=== PATIENT | male | born 1970 ===

== ENCOUNTER 2018-05-27 11:45 | Emergency (ER) | payer BC ==
[2018-05-27 12:03] VITALS: RESP 18; O2SAT 99
--- NOTE | 2018-05-27 13:14 | C.PDOC ---
History Of Present Illness 48 y/o male presents to the ER complaining of chest pain, center of chest, without radiation, similiar occurences over the past months which has restarted and has been present since last night. Patient states that he spoke to his PMD and he was prescribed to see a [facility]. Pt notes that he runs 3 miles a day and has no other issues. No orthopnea, pnd or leg swelling. No hx of blood clots, drug use or smoking. Patient denies having dizziness, SOB, nausea, ands vomiting. Time Seen by Provider: 05/27/18 13:05 Chief Complaint (Nursing): Chest Pain History Per: Patient History/Exam Limitations: no limitations Onset/Duration Of Symptoms: Days Current Symptoms Are (Timing): Still Present Severity: Moderate Past Medical History Reviewed: Historical Data, Nursing Documentation, Vital Signs Vital Signs: Last Vital Signs Temp 98.7 F 05/27/18 15:32 Pulse 62 05/27/18 15:32 Resp 18 05/27/18 15:32 BP 113/65 05/27/18 15:32 Pulse Ox 99 05/27/18 17:40 - Medical History PMH: No Chronic Diseases Surgical History: No Surg Hx Family History: States: No Known Family Hx - Social History Hx Alcohol Use: Yes Hx Substance Use: No - Immunization History Hx Tetanus Toxoid Vaccination: No Hx Influenza Vaccination: No Hx Pneumococcal Vaccination: No Review Of Systems Except As Marked, All Systems Reviewed And Found Negative. Constitutional: Negative for: Fever, Chills Cardiovascular: Positive for: Chest Pain Respiratory: Negative for: Shortness of Breath Physical Exam - Physical Exam Appears: Non-toxic, No Acute Distress Skin: Normal Color, Warm, Dry Head: Atraumatic, Normacephalic Eye(s): bilateral: Normal Inspection Neck: Supple, Other (no meningeal signs) Chest: Symmetrical Cardiovascular: Rhythm Regular Respiratory: Normal Breath Sounds, No Rales, No Rhonchi, No Wheezing Extremity: Bilateral: Atraumatic Neurological/Psych: Oriented x3, Normal Speech, Normal Cognition, Normal Cranial Nerves, No Cerebellar Signs, Normal Motor, Normal Sensation Gait: Steady ED Course And Treatment - Laboratory Results Result Diagrams: 05/27/18 13:42 05/27/18 13:42 O2 Sat by Pulse Oximetry: 99 (RA) Pulse Ox Interpretation: Normal - Radiology CXR: Interpreted by Me, Viewed By Me CXR Interpretation: Yes: No Acute Disease Medical Decision Making Medical Decision Makin yr old male p/w chest pain, center of chest, without radiation, shortness of breath, nausea or vomiting. Well appearing on exam w/ unremarkable EKG. CP since last night, seen by primary for similiar CP 1 week prior, who refered him to [facility]. Pts chest pain is atypical, stabbing like, without pressure. No pleuritic chest pain. No orthopnea, pnd or leg swelling. No hx of blood clots. Low Wells: PERC out Heart score Age: 1 EK Story: 1 RF: 0 troponin: pending 1431 labs, ekg unremarkable xray unremarkable trop negative: CP began last night. Heart score 2 pending re-eval 1500 Re-Evaled, cp free, clear for d/c Disposition - Disposition Referrals: [facility] [Outside] Kwame Elaine MD [Staff Provider] - Disposition: HOME/ ROUTINE Disposition Time: 14:30 Condition: GOOD Instructions: Chest Pain That Is Not Caused by the Heart (DC) Forms: [employer] (Slovenian) - Clinical Impression Clinical Impression: Chest pain - Scribe Statement The provider has reviewed the documentation as recorded by the Scribe Isac Woodson Provider Attestation: All medical record entries made by the Scribe were at my direction and personally dictated by me. I have reviewed the chart and agree that the record accurately reflects my personal performance of the history, physical exam, medical decision making, and the department course for this patient. I have also personally directed, reviewed, and agree with the discharge instructions and disposition.
[2018-05-27 13:53] LABS: BASO % 0.4 % (0.0-2.0); EOS % 0.2 % (0.0-4.0); HEMOGLOBIN 14.1 g/dL (12.0-18.0); LYMPH # 1.2 K/uL (1.0-4.3); LYMPH % 21.9 % (20.0-40.0); MEAN CORPUSCULAR HEMOGLOBIN 31.7 pg (27.0-31.0); MEAN CORPUSCULAR HGB CONC 33.7 g/dL (33.0-37.0); MEAN PLATELET VOLUME 9.3 fL (7.2-11.7); MONO # 0.5 K/uL (0.0-0.8); NEUT # 3.9 K/uL (1.8-7.0); NEUT % 68.5 % (50.0-75.0); RBC 4.46 Mil/uL (4.40-5.90); RED CELL DISTRIBUTION WIDTH 13.5 % (11.5-14.5); WHITE BLOOD COUNT 5.6 K/uL (4.8-10.8)
[2018-05-27 13:57] LABS: ALB/GLOB RATIO 1.7 (1.0-2.1); ALBUMIN 4.9 g/dL (3.5-5.0); ALT/SGPT 32 U/L (21-72); AST/SGOT 29 U/L (17-59); BLOOD UREA NITROGEN 11 mg/dL (9-20); CALCIUM 9.6 mg/dl (8.6-10.4); GFR NON-AFRICAN AMERICAN > 60
--- NOTE | 2018-05-27 14:20 | RAD ---
Date of service: 05/27/2018 HISTORY: Chest pain. COMPARISON: No prior. TECHNIQUE: Chest PA and lateral FINDINGS: LUNGS: No active pulmonary disease. PLEURA: No significant pleural effusion identified. No pneumothorax apparent. CARDIOVASCULAR: No radiographic findings to suggest acute or significant cardiovascular disease. OSSEOUS STRUCTURES: No significant abnormalities. VISUALIZED UPPER ABDOMEN: Normal. OTHER FINDINGS: None. IMPRESSION: No active disease.
[2018-05-27 15:33] VITALS: BP 113/65; PULSE 62; TEMP 98.7
--- NOTE | 2018-05-28 11:52 | CARD ---
APPROVED REPORT Date of service: 05/27/2018 EKG Measurement Heart [id number] <Conclusion> Normal sinus rhythm Incomplete left bundle branch block Borderline ECG
== END 2018-05-27 15:34 | disposition home or self-care (01) ==
LOC: C.ER 11:45
DX: R07.9 Chest pain, unspecified (principal)